=== PATIENT | male | born 1960 | race Caucasian/White ===

== ENCOUNTER 2018-11-18 10:21 | Emergency (ER) | payer MEDICAID ==
[~2018-11-18] VITALS: Ht 177.8 cm; Wt 64.5 kg
[2018-11-18 11:39] VITALS: BP 112/74
--- NOTE | 2018-11-18 12:27 | NUR ---
CALLED FOR ROOM, NO ANSWER.
--- NOTE | 2018-11-18 13:30 | NUR ---
ring to left ring finger cut off due to swelling, pt reports pain reflief upon removal.
--- NOTE | 2018-11-18 13:50 | NUR ---
pt refused labs- ERP & PA aware
[2018-11-18] MEDS ORDERED: PLEASE ENTER ALLERGIES MC SCH (14:00)
[2018-11-18] MEDS ORDERED: AMPICILLIN/SULBACTAM 3 GM IM ONE (14:00)
--- NOTE | 2018-11-18 14:05 | NUR ---
pt upright on gurney awake & comfortable, ice pack to left hand in place, pt understands reason for labwork & consequences of refusal, responds approp to staff, NAD, comfort measures provided, call light within reach.
--- NOTE | 2018-11-18 14:44 | NUR ---
Patient given discharge instructions and Rx, they have confirmed that they understand the instructions. Patient ambulatory with steady gait.
== END 2018-11-18 14:46 | disposition home or self-care (01) ==
LOC: ED 14:42
DX: L03.012 Cellulitis of left finger (principal)
CPT/HCPCS: 73130; 96372; 99283; J0295